=== PATIENT | male | born 1955 | race Caucasian/White ===

== ENCOUNTER 2024-07-19 05:06 | Inpatient (IN) | payer OTHER ==
[2024-07-19 05:51] LABS: Absolute Basophils 0.1 K/uL (0-0.5); Absolute Eosinophils 0.4 K/uL (0-0.5); Absolute Lymphocytes (CBC) 1.7 K/uL (0.7-4.9); Absolute Monocytes 0.9 K/uL (0.1-1.3); Absolute Neutrophil 3.4 K/uL (1.8-8.0); Basophils % 0.9 % (0-1.3); Hematocrit 45.2 % (39.6-49.0); Hemoglobin 15.3 g/dL (13.6-17.9); Lymphocytes % 26.2 % (15.3-44.8); MCH 29.5 pg (27.0-35.0); MCHC 33.8 g/dL (32.0-36.0); MCV 87.4 fL (80-100); MPV 8.7 fL (7.6-11.3); Monocytes % 14.5 % (3.3-12.3); Neutrophils % 52.4 % (41.7-73.7); Nucleated Red Blood Cells % 0.2 % (0-0); Platelets 235 thou/uL (152-406); RBC Red Blood Cell Count 5.17 M/uL (4.33-5.43); Red Cell Distribution Width 14.3 % (12.1-15.2)
[2024-07-19 05:52] LABS: PT Prothrombin Time 11.5 SECONDS (9.4-12.5); Protime INR 1.03
[2024-07-19 06:19] LABS: ALT/SGPT 40 U/L (16-61); Albumin 3.5 g/dL (3.4-5.0); Albumin/Globulin Ratio 0.9 (1.1-1.8); Alkaline Phosphatase 66 U/L (45-117); Anion Gap 8.9 mEq/L (5.0-15.0); BUN Blood Urea Nitrogen 17 mg/dL (7-18); Bicarbonate 28 mEq/L (21-32); Bilirubin Total 0.5 mg/dL (0.2-1.0); Globulin 3.8 g/dL (2.3-3.5); Glomerular Filtration Rate 69 ml/min (=/>90); Glucose Level 131 mg/dL (74-106); NT PRO-BNP 51 pg/mL (<125); Protein, Total 7.3 g/dL (6.4-8.2); Sodium Level 137 mEq/L (136-145); Troponin High Sensitivity 5.5 pg/mL (<58.9)
[2024-07-19] MEDS ORDERED: ONDANSETRON 4 MG/2 ML VIAL ONE (06:20)
[2024-07-19 06:22] LABS: AST/SGOT 30 U/L (15-37); Bilirubin Direct < 0.2 mg/dL (0-0.2); Bilirubin Indirect, Calculated 0.3 mg/dL (0.2-0.8); Magnesium 2.3 mg/dL (1.6-2.4); Potassium 3.9 mEq/L (3.5-5.1)
--- NOTE | 2024-07-19 07:06 | RAD REPORT ---
PROCEDURE: XR CHEST 1 VIEW TECHNIQUE: Chest radiograph single view. HISTORY: Chest pain COMPARISONS: None . FINDINGS: Heart: Normal contour. Mediastinum/Vessels: Normal contour. Lungs/Pleural space: No infiltrate, effusion, or pneumothorax. Bony thorax: No acute osseous abnormality. Life support devices: None. IMPRESSION: 1. No radiographic evidence of acute cardiopulmonary disease process. Electronically signed by: Gavi Rush MD 07/19/2024 06:38 AM [facility] Due to temporary technical issues with the PACS/Tag & See reporting system, reports are being florence d by the in-house radiologist without review as a courtesy to ensure prompt reporting the interpreting radiologist is fully responsible for the content of the report. Transcribed Date/Time: 07/19/2024 7:06 AM
--- NOTE | 2024-07-19 07:28 | ER ---
Nurse's Notes [facility] Name: Ritesh Aguilar Age: 69 yrs Sex: Male : 1955 Arrival Date: 07/19/2024 Time: 05:06 Bed 4 Private MD: Diagnosis: Unstable angina Presentation: 07/19 05:09 Chief complaint: Patient states: BURNING CP WOKE HIM UP OUT OF HIS SLEEP AT 4:30AM EMS jj7 states: CP AND NAUSEA. Coronavirus screen: At this time, the client does not indicate any symptoms associated with coronavirus-19. Ebola Screen: No symptoms or risks identified at this time. Initial Sepsis Screen: Does the patient meet any 2 criteria? No. Patient's initial sepsis screen is negative. Does the patient have a suspected source of infection? No. Patient's initial sepsis screen is negative. Risk Assessment: Do you want to hurt yourself or someone else? Patient reports no desire to harm self or others. Onset of symptoms was July 19, 2024. Care prior to arrival: Medication(s) given: ASA, x 4, IV initiated. 20 GA, in the left antecubital area. 05:09 Method Of Arrival: EMS: [facility] jj7 05:09 Acuity: LEIF 3 jj7 Triage Assessment: 05:09 General: Appears in no apparent distress. comfortable, Behavior is calm, cooperative, jj7 appropriate for age. Pain: Complains of pain in chest. Cardiovascular: Reports chest pain, BURNING CP. Historical: - Allergies: 05:13 No Known Allergies; jj7 - Home Meds: 05:47 Celexa Oral [Active]; Metoprolol Tartrate Oral [Active]; Nexium Oral [Active]; aa10 - PMHx: 05:13 SVT; Hypertensive disorder; Hypercholesterolemia; Gastroesophageal reflux disease; jj7 - PSHx: 05:13 ABLATION; jj7 - Immunization history:: Adult Immunizations up to date, Client reports receiving the 2nd dose of the Covid vaccine, Flu vaccine is up to date. - Infectious Disease History:: Denies. - Social history:: Smoking status: Patient denies any tobacco usage or history of. Patient/guardian denies using alcohol, street drugs, IV drugs. - Family history:: not pertinent. Screenin:15 [facility] ED Fall Risk Assessment (Adult) History of falling in the last 3 months, jj7 including since admission No falls in past 3 months (0 pts) Confusion or Disorientation No (0 pts) Intoxicated or Sedated No (0 pts) Impaired Gait No (0 pts) Mobility Assist Device Used No (0 pt) Altered Elimination No (0 pt) Score/Fall Risk Level 0 - 2 = Low Risk Oriented to surroundings, Maintained a safe environment, Educated pt \T\ family on fall prevention, incl call for assistance when getting out of bed, Assessed \T\ reinforced patient's understanding of fall precautions. Abuse screen: Denies threats or abuse. Nutritional screening: No deficits noted. Tuberculosis screening: No symptoms or risk factors identified. Assessment: 05:16 Pain: Pain does not radiate. Pain began 1 hour ago. rg5 06:53 Reassessment: Patient appears in no apparent distress at this time. No changes from aa10 previously documented assessment. Patient and/or family updated on plan of care and expected duration. Pain level reassessed. Patient is alert, oriented x 3, equal unlabored respirations, skin warm/dry/pink. 06:54 General: Appears in no apparent distress. comfortable, Behavior is calm, cooperative, aa10 appropriate for age, quiet, Reports feeling ill for 0-12 hours. Pain: Complains of pain in chest. Neuro: No deficits noted. Level of Consciousness is awake, alert, obeys commands, Oriented to person, place, time, situation, Appropriate for age Gait is steady, Speech is normal, Facial symmetry appears normal, Intact. Cardiovascular: No deficits noted. Capillary refill < 3 seconds. Respiratory: No deficits noted. Airway is patent. 07:40 Reassessment: Patient appears in no apparent distress at this time. Patient and/or ph family updated on plan of care and expected duration. Pain level reassessed. Patient is alert, oriented x 3, equal unlabored respirations, skin warm/dry/pink. Pt ambulatory to restroom w/ steady gait, denies pain at this time. Vital Signs: 05:09 BP 152 / 77; Pulse 67; Resp 20; Temp 98.4; Pulse Ox 99% ; Weight 106.59 kg; Height 5 jj7 ft. 10 in. ; 05:32 BP 152 / 77; Pulse 65 MON; Resp 20 S; Temp 98.4(O); Pulse Ox 97% ; aa10 06:53 BP 134 / 88; Pulse 66; Resp 20 S; Pulse Ox 96% on R/A; aa10 07:41 BP 139 / 73; Pulse 72; Resp 18; Pulse Ox 98% on R/A; ph 05:09 Body Mass Index 33.72 (106.59 kg, 177.8 cm) jj7 05:32 Sinus Rhythm aa10 Ventura Coma Score: 06:10 Eye Response: spontaneous(4). Motor Response: obeys commands(6). Verbal Response: sp4 oriented(5). Total: 15. ED Course: 05:06 Patient arrived in ED. jj6 05:07 Collin Narvaez MD is Attending Physician. sp4 05:08 Ricardo Espinosa, SAILAJA is Primary Nurse. rg5 05:09 EKG done, by ED staff, reviewed by Collin Narvaez MD. sa1 05:09 Arm band placed on right wrist. Patient placed in an exam room, on a stretcher, on jj7 shelter monitor, on pulse oximetry. 05:13 Triage completed. jj7 05:15 Maintain EMS IV. Dressing intact. Good blood return noted. Site clean \T\ dry. Gauge \T\ jj 7 site: 20G LEFT AC. Flushed with 10 mL NS. 05:15 Patient has correct armband on for positive identification. Bed in low position. Call jj7 light in reach. Provided Education on: USE OF CALL PATTEN. Client placed on continuous cardiac and pulse oximetry monitoring. NIBP monitoring applied. monitoring specialist on. Pulse ox on. 05:16 No provider procedures requiring assistance completed. Maintain EMS IV. Dressing rg5 intact. Site clean \T\ dry. Gauge \T\ site: 20 left AC. Flushed with 10 mL NS IV is intact, Flushed left antecubital saline lock with 5 ml normal saline. Patient maintains SpO2 saturation greater than 95% on room air. 05:29 Basic Metabolic Panel Sent. aa10 05:29 CBC with Diff Sent. aa10 05:29 LFT's Sent. aa10 05:29 Magnesium Sent. aa10 05:29 NT PRO-BNP Sent. aa10 05:29 PT-INR Sent. aa10 05:29 Troponin HS Sent. aa10 05:30 Inserted saline lock: 20 gauge in right antecubital area, using aseptic technique. aa10 05:51 Basic Metabolic Panel Sent. aa10 05:51 CBC with Diff Sent. aa10 05:51 LFT's Sent. aa10 05:51 Magnesium Sent. aa10 05:51 NT PRO-BNP Sent. aa10 05:51 PT-INR Sent. aa10 05:51 Troponin HS Sent. aa10 06:10 XRAY Chest (1 view) In Process Unspecified. EDMS 07:28 Nir Pantoja is Hospitalizing Provider. sp4 07:54 Hospitalizing Provider role handed off by Nir Pantoja sp4 07:54 Robert Ross MD is Hospitalizing Provider. sp4 08:14 Patient admitted, IV remains in place. ko1 12:56 Notify charge nurse of patient report being faxed. ty Administered Medications: 06:24 Drug: Ondansetron IVP 8 mg IVP once; over 2 minutes Route: IVP; Site: right antecubital;aa10 07:00 Follow up: Response: No adverse reaction; Marked relief of symptoms aa10 Medication: 05:16 VIS not applicable for this client. rg5 Outcome: 07:28 Decision to Hospitalize by Provider. sp4 08:14 Admitted to ER Hold. Please see [facility] for further documentation. ko1 08:14 Condition: stable 08:14 Instructed on the need for admit, 13:16 Admitted to Tele accompanied by tech, via wheelchair, room 402, with chart, ko1 13:17 Patient left the ED. ko1 Signatures: Dispatcher [employer] ELIZABETHMI Casi Rasmussen RN RN Tracey Cornelius jj6 Dinora Ledbetter RN RN ko1 Hussein Gil RN RN [id number] Collin Narvaez MD MD sp4 Lucian Kim ty Ricardo Espinosa RN RN rg5 Sultan Jian Alyssa Ramon RN RN aa10 Corrections: (The following items were deleted from the chart) 05:14 05:13 Allergies: Codeine; jj7 jj7
--- NOTE | 2024-07-19 07:28 | EDPHYS ---
Physician Documentation [facility] Name: Ritesh Aguilar Age: 69 yrs Sex: Male : 1955 Arrival Date: 07/19/2024 Time: 05:06 Bed 4 Private MD: ED Physician Collin Narvaez HPI: 07/19 05:07 This 69 yrs old Male presents to ER via Unassigned with complaints of Chest sp4 Pain. 06:10 This is 69-year-old male presents with EMS for acute onset of midsternal chest pressure sp4 associated with acute night sweat at 4 AM. Patient reported chest pressure associated with a burning sensation nausea breaking out in cold sweat shortness of breath on awakening at 4 AM. Patient has experienced dyspnea on exertion the last few weeks. Patient has visit with cardiology as scheduled tomorrow. For dyspnea on exertion. History of SVT with ablation. EMS administered 324 mg of aspirin p.o. Patient at home takes Lexapro, prazosin, lisinopril, metoprolol, omeprazole, rosuvastatin.. Historical: - Allergies: 05:13 No Known Allergies; jj7 - Home Meds: 05:47 Celexa Oral [Active]; Metoprolol Tartrate Oral [Active]; Nexium Oral [Active]; aa10 - PMHx: 05:13 SVT; Hypertensive disorder; Hypercholesterolemia; Gastroesophageal reflux disease; jj7 - PSHx: 05:13 ABLATION; jj7 - Immunization history:: Adult Immunizations up to date, Client reports receiving the 2nd dose of the Covid vaccine, Flu vaccine is up to date. - Infectious Disease History:: Denies. - Social history:: Smoking status: Patient denies any tobacco usage or history of. Patient/guardian denies using alcohol, street drugs, IV drugs. - Family history:: not pertinent. ROS: 06:10 Constitutional: Negative for fever, chills, and weight loss, positive for chest pain, sp4 shortness of breath, 06:10 All other systems are negative, Exam: 06:08 Constitutional: This is a well developed, well nourished patient who is awake, alert, sp4 and in no acute distress. Head/Face: Normocephalic, atraumatic. Eyes: Pupils equal round and reactive to light, extra-ocular motions intact. Lids and lashes normal. Conjunctiva and sclera are not injected. Cornea within normal limits. Periorbital areas with no swelling, redness, or edema. ENT: Nares patent. No nasal discharge, no septal abnormalities noted. Tympanic membranes are normal and external auditory canals are clear. Oropharynx with no redness, swelling, or masses, exudates, or evidence of obstruction, uvula midline. Mucous membranes moist. Neck: Trachea midline, no thyromegaly or masses palpated, and no cervical lymphadenopathy. Supple, full range of motion without nuchal rigidity, or vertebral point tenderness. Chest/axilla: Normal chest wall appearance and motion. Nontender with no deformity. No lesions are appreciated. Cardiovascular: Regular rate and rhythm with a normal S1 and S2. No gallops, murmurs, or rubs. Normal PMI, no JVD. No pulse deficits. Respiratory: Lungs have equal breath sounds bilaterally, clear to auscultation and percussion. No rales, rhonchi or wheezes noted. No increased work of breathing, no retractions or nasal flaring. Abdomen/GI: Soft, with normal bowel sounds. No distension or tympany. No guarding or rebound. No evidence of tenderness throughout. Back: No spinal tenderness. No costovertebral tenderness. Skin: Warm, dry with normal turgor. Normal color with no rashes, no lesions, and no evidence of cellulitis. MS/ Extremity: Pulses equal, no cyanosis. Neurovascular intact. Full, normal range of motion. Neuro: Awake and alert, GCS 15, oriented to person, place, time, and situation. Cranial nerves II-XII grossly intact. Motor strength 5/5 in all extremities. Sensory grossly intact. Psych: Awake, alert, with orientation to person, place and time. Behavior, mood, and affect are within normal limits 06:08 ECG was reviewed by the Attending Physician. EKG 0507, normal sinus rhythm rate 70 prolonged QT otherwise normal Vital Signs: 05:09 BP 152 / 77; Pulse 67; Resp 20; Temp 98.4; Pulse Ox 99% ; Weight 106.59 kg; Height 5 jj7 ft. 10 in. ; 05:32 BP 152 / 77; Pulse 65 MON; Resp 20 S; Temp 98.4(O); Pulse Ox 97% ; aa10 06:53 BP 134 / 88; Pulse 66; Resp 20 S; Pulse Ox 96% on R/A; aa10 07:41 BP 139 / 73; Pulse 72; Resp 18; Pulse Ox 98% on R/A; ph 05:09 Body Mass Index 33.72 (106.59 kg, 177.8 cm) jj7 05:32 Sinus Rhythm aa10 Berna Coma Score: 06:10 Eye Response: spontaneous(4). Motor Response: obeys commands(6). Verbal Response: sp4 oriented(5). Total: 15. MDM: 05:07 Medical Screening Exam initiated sp4 06:10 Differential diagnosis: acute myocardial infarction, acute pericarditis, anxiety, sp4 coronary artery disease chest wall pain, congestive heart failure esophagitis, gastritis. HEART Score: History: Highly Suspicious (2), ECG: Non specific repolarization disturbance / LBTB / PM (1), Age: > or = 65 years (2), Risk Factors: > or = 3 Risk factors for atherosclerotic disease (2), Troponin: < or = 1 x Normal Limit (0), Total Score = 7. The patient was not given aspirin in the Emergency Department. Administered by EMS. Data reviewed: vital signs, nurses notes, EMS record, old medical records, lab test result(s), EKG, radiologic studies. Consideration of Admission/Observation Patient was admitted/placed on observation. Escalation of care including admission/observation considered. 07:25 ED course: PROCEDURE: XR CHEST 1 VIEW TECHNIQUE: Chest radiograph single view. HISTORY: sp4 Chest pain COMPARISONS: None . FINDINGS: Heart: Normal contour. Mediastinum/Vessels: Normal contour. Lungs/Pleural space: No infiltrate, effusion, or pneumothorax. Bony thorax: No acute osseous abnormality. Life support devices: None. IMPRESSION: 1. No radiographic evidence of acute cardiopulmonary disease process.. 07/19 05:07 Order name: Basic Metabolic Panel; Complete Time: 06:48 sp4 07/19 05:07 Order name: CBC with Diff; Complete Time: 06:00 sp4 07/19 05:07 Order name: LFT's; Complete Time: 06:48 sp4 07/19 05:07 Order name: Magnesium; Complete Time: 06:48 sp4 07/19 05:07 Order name: NT PRO-BNP; Complete Time: 06:48 sp4 07/19 05:07 Order name: PT-INR; Complete Time: 06:00 sp4 07/19 05:07 Order name: Troponin HS; Complete Time: 06:48 sp4 07/19 10:14 Order name: Troponin High Sensitivity [facility] 07/19 05:07 Order name: XRAY Chest (1 view); Complete Time: 07:26 sp4 07/19 07:59 Order name: CONS Physician Consult [facility] 07/19 05:07 Order name: Cardiac monitoring; Complete Time: 05: sp4 07/19 05:07 Order name: EKG - Nurse/Tech; Complete Time: 05:09 sp4 07/19 05:07 Order name: IV Saline Lock; Complete Time: 05:27 sp4 07/19 05:07 Order name: Labs collected and sent; Complete Time: : sp4 07/19 05:07 Order name: O2 Per Protocol; Complete Time: 05: sp4 07/19 05:07 Order name: O2 Sat Monitoring; Complete Time: : sp4 EC:07 Rate is 70 beats/min. Rhythm is regular, Normal Sinus Rhythm. QRS Emerson is Normal. PA sp4 interval is normal. QRS interval is normal. QT interval is prolonged. No Q waves. T waves are Normal. No ST changes noted. Clinical impression: No evidence of ischemia. Interpreted by me. Reviewed by me. Administered Medications: 06:24 Drug: Ondansetron IVP 8 mg IVP once; over 2 minutes Route: IVP; Site: right antecubital;aa10 07:00 Follow up: Response: No adverse reaction; Marked relief of symptoms aa10 Disposition Summary: 07/19/24 07:28 Hospitalization Ordered Notes: Hospitalization Status: Inpatient Admission sp4 Location: Telemetry/[facility] (Inpatient) sp4 Condition: Stable sp4 Problem: new sp4 Symptoms: have improved sp4 Bed/Room Type: Standard sp4 Provider: Robert Ross(07/19/24 07:54) sp4 Room Assignment: [facility](07/19/24 12:45) ty Diagnosis - Unstable angina sp4 Forms: - Medication Reconciliation Form sp4 - SBAR form sp4 - Leadership Thank You Letter sp4 Signatures: Dispatcher [employer] Hussein Jewell RN RN jj7 Collin Narvaez MD MD sp4 Lucian Kim ty Alyssa Arreola, RN RN aa10 Corrections: (The following items were deleted from the chart) 05:08 05:08 BASIC METABOLIC PANEL+C.LAB.BRZ ordered. EDMS EDMS 05:08 05:08 CBC+H.LAB.BRZ ordered. EDMS EDMS 05:08 05:08 HEPATIC FUNCTION+C.LAB.BRZ ordered. EDMS EDMS 05:08 05:08 MAGNESIUM+C.LAB.BRZ ordered. EDMS EDMS 05:08 05:08 PROBNP+C.LAB.BRZ ordered. EDMS EDMS 05:08 05:08 PROTIME (+INR)+COAG.LAB.BRZ ordered. EDMS EDMS 05:08 05:08 Troponin High Sensitivity+C.LAB.BRZ ordered. EDMS EDMS 05:08 05:08 Chest Single View+RAD.RAD.BRZ ordered. EDMS EDMS 05:14 05:13 Allergies: Codeine; jj7 jj7 07:54 07:28 Nir Pantoja sp4 sp4 12:45 07:28 sp4 ty
[2024-07-19] MEDS ORDERED: ACETAMINOPHEN 325 MG TABLET PO PRN (08:49)
[2024-07-19] MEDS ORDERED: ONDANSETRON 4 MG/2 ML VIAL IV PRN (08:49)
[2024-07-19] MEDS ORDERED: ALBUTEROL 2.5 MG/3 ML NEB SOL NEB PRN (08:49)
[2024-07-19] MEDS: ENOXAPARIN 100 MG/ML SYR SQ SCH (09:00)
[2024-07-19] MEDS: METOPROLOL XL 25 MG TAB PO SCH (09:00)
--- NOTE | 2024-07-19 11:58 | HP ---
Date of Admission: 07/19/2024 Chief Complaint: Chest pain. History Of Present Illness: This is a 69-year-old male patient, who has not felt good in last 2 grover hs and describes as just overall feeling tired. He has not had any chest pain complaint or any other cardiac complaint up until this morning. The patient says that he woke up around 4 o'clock this mor richard from his sleep with chest pain and describes his chest pain as burning type of pain in the cente r of his chest, associated with some nausea, shortness of breath, and diaphoresis. His pain did not radiate anywhere and it lasted about 15 minutes or so and after that it subsided spontaneously, but a fter a while, his symptoms came back and that is the time he called ambulance and was brought into em ergency room. He was given aspirin by EMS and after he came to emergency room, his chest pain compla int has improved without any further intervention. After he was evaluated in emergency room, I was c ontacted requesting admission to the hospital and I saw him in the emergency room this morning. Allergies: TO CODEINE. Medications: Takes rosuvastatin, metoprolol, and lisinopril. Review of Systems: Cardiovascular: As mentioned above. All other systems reviewed and negative. Past Medical History: Significant for gastroesophageal reflux disease, history of paroxysmal suprave ntricular tachycardia, anxiety, Tavares's esophagus, history of ulcerative colitis, hypertension, and hyperlipidemia. Past Surgical History: Significant for tonsillectomy and ablation procedure for supraventricular tac hycardia. Family History: Brother and sister alive and well. Son has Crohn's disease. Mother had diabetes. Father had heart disease. Social History: He is , lives at home with his . Negative for smoking and alcohol use. Physical Examination: Vital Signs: Upon presentation to emergency room, blood pressure 152/77, respiratory rate 20, pulse 67, temperature 98.4, oxygen saturation 99%. Weight 106.59 kg, height 5 feet 10 inches. General: Awake, alert, oriented, not in distress. HEENT: Head atraumatic, normocephalic. Conjunctivae nonerythematous. Sclerae white. Mouth, no thr ush or edema noted. Ears/Nose, no mass, lesion, discharge noted. Neck: Supple. No JVD, lymph nodes, bruit, thyromegaly noted. Lungs: Bilateral good equal air entry. Clear to auscultation. No rhonchi. No rales. Heart: Normal heart sounds, no murmur or gallop. Abdomen: Soft, bowel sounds normal. No guarding, rigidity, tenderness, mass, hepatosplenomegaly, dis tention, or bruit noted. Extremities: No leg edema. No calf tenderness. Skin: No rash, ulcer, cellulitis. Lymphatics: No lymph node enlargement in neck, supraclavicular, infraclavicular region. Neuro: No focal neurological deficit. Chest: Unremarkable. External Genitalia: Deferred. Rectal: Deferred. Laboratory Data: His EKG was normal sinus rhythm, incomplete right bundle-branch block. Chest x-ray , no acute cardiopulmonary changes. WBC 6.5, hemoglobin 15.3, platelets 235. Sodium 137, potassium 3.9, chloride 104, bicarb 28, BUN 17, creatinine 1.16, glucose 131. Liver function tests unremarkabl e. Troponin 5.5. Impression: 1.Unstable angina. 2.Hypertension. 3.Hyperlipidemia. 4.Gastroesophageal reflux disease. 5.Anxiety. 6.History of supraventricular tachycardia. Plan: We will admit the patient to hospital for further evaluation and management of this problem. The patient is appropriate for inpatient and is expected to spend 2 midnights in hospital. He receiv ed aspirin by EMS and we will start aspirin 81 mg daily as of tomorrow. We will start metoprolol 25 mg daily as of today and Lovenox 100 mg subcutaneous injection every 12 hours starting this morning. Consult electric motor and generator assembler and we will keep the patient n.p.o. after midnight for possible cardiac cath pr ocedure tomorrow. I have communicated with him and explained him details regarding different possibi lities that reminded a finding on basis of cardiac cath, 1 is that it is a false alarm in sense that his chest pain is not necessarily cardiac in origin and that will be the best place that we can provi de to somebody like him, but we definitely need to have further investigation to see if he has any si gnificant underlying coronary artery disease requiring further intervention and he understands and ag radha with the plan of treatment that is recommended to him. For hypertension, we will continue metop rolol per order. Monitor blood pressure and adjust medication as it becomes necessary. For hyperlip idemia, we will go ahead and give him Rosuvastatin 20 mg daily at bedtime. Get fasting lipid profile tomorrow morning. For his gastroesophageal reflux disease, no need for further intervention. Detai ls and plan of treatment discussed with the patient and we will follow up with our electric motor and generator assembler, Dr. Carreon regarding further plan of treatment. Total time spent today 80 minutes including review of last hospital visit record from 01/10/2014, rev iew of last office visit record, review of emergency room visit record, communication with emergency room physician. KATIE/MODL Voice ID: [id number]
[2024-07-19 16:44] LABS: Specific Gravity 1.011 (1.005-1.030); Urine Bilirubin NEGATIVE (Negative); Urine Blood Negative (Negative); Urine Clarity Clear (Clear); Urine Color Light-Yellow (Yellow); Urine Glucose NEGATIVE (Negative); Urine Ketones NEGATIVE (Negative); Urine Microscopic Reflex YN NO UMIC; Urine Nitrite NEGATIVE (Negative); Urine Protein NEGATIVE (Negative); Urine Urobilinogen Normal (Normal)
[2024-07-19] MEDS: ROSUVASTATIN 10 MG TAB PO SCH (20:19)
[2024-07-19] MEDS: ZOLPIDEM TARTRATE 5 MG TABLET PO PRN (22:03)
[2024-07-20 08:09] LABS: Anion Gap 8.8 mEq/L (5.0-15.0); Potassium 3.8 mEq/L (3.5-5.1)
[2024-07-20] MEDS: D5 0.9 NS 1,000 ML IV SCH (08:17)
[2024-07-20] MEDS: ASPIRIN EC 81 MG TAB PO SCH (08:17)
[2024-07-20] MEDS ORDERED: NITROGLYCERIN/D5W 50 MG/250 ML BTL IV ONE (09:52)
[2024-07-20] MEDS ORDERED: HEPA 1000U/500MLS 2,000 UNIT/1,000 ML BAG IV ONE (09:52)
[2024-07-20] MEDS ORDERED: LIDOCAINE 1% 20 ML MDV ONE (09:53)
[2024-07-20] MEDS ORDERED: HEPARIN 10,000 UNIT/10 ML VIAL IV ONE (09:53)
[2024-07-20] MEDS ORDERED: MIDAZOLAM HCL 2 MG/2 ML INJ ONE (09:53)
[2024-07-20] MEDS ORDERED: ATROPINE SULF 1 MG/10 ML SYR IV ONE (09:53)
[2024-07-20] MEDS ORDERED: ASPIRIN 325 MG TAB ONE (09:54)
[2024-07-20] MEDS ORDERED: FENTANYL CITR 100 MCG/2 ML ONE (09:54)
[2024-07-20] MEDS ORDERED: HEPARIN 5000 UNIT/ML 1 ML VIAL ONE (09:54)
[2024-07-20] MEDS ORDERED: NA CHLORIDE 0.9% 500 ML ONE (09:54)
[2024-07-20] MEDS ORDERED: TICAGRELOR 90 MG TABLET PO ONE ×3 (09:54→14:00)
[2024-07-20] MEDS ORDERED: CLOPIDOGREL 75 MG TABLET ONE (09:54)
[2024-07-20 10:30] VITALS: BMI 33.5
--- NOTE | 2024-07-20 10:36 | P.CNS ---
Date of Consult: 07/20/24 Chief Complaint: chest pain History of Present Illness: Patient with PMH of HTN, HLD presented with worsening chest pain that started yesterday, pressure in nature associated with sweating and diaphoresis, denies any other symptoms Allergies codeine [Codeine] Allergy (Severe, Verified 08/09/13 18:03) Nausea/Vomiting Home medications list reviewed: Yes Home Medications: Escitalopram Oxalate [Lexapro] 10 mg PO DAILY 07/19/24 Lisinopril [Zestril] 10 mg PO DAILY 07/19/24 Metoprolol Succinate [Toprol Xl] 25 mg PO DAILY 07/19/24 Omeprazole [Prilosec] 40 mg PO DAILY 07/19/24 Prazosin HCl 1 mg PO DAILY 07/19/24 Rosuvastatin [Crestor] 5 mg PO SEECOM 07/19/24 clonazePAM [Clonazepam] 0.25 mg PO PRN PRN 07/19/24 - Past Medical/Surgical History Diabetic: No -: tachycardia -: SVT -: GERD -: herniated disc in nec -: tonsillectomy -: cardiac ablation r/t SVT - Social History Smoking Status: Never smoker Alcohol use: Yes CD- Drugs: No Caffeine use: Yes Place of Residence: Home Review of Systems 10-point ROS is otherwise unremarkable Physical Examination Temp Pulse Resp BP Pulse Ox 98.1 F 69 20 124/76 94 07/20/24 08:00 07/20/24 08:00 07/20/24 08:00 07/20/24 08:00 07/20/24 08:00 General: Alert, In no apparent distress HEENT: Atraumatic, PERRLA, Mucous membr. moist/pink, EOMI, Sclerae nonicteric Neck: Supple, 2+ carotid pulse no bruit, No LAD, Without JVD or thyroid abnormality Respiratory: Clear to auscultation bilaterally, Normal air movement Cardiovascular: Regular rate/rhythm, Normal S1 S2 Gastrointestinal: Normal bowel sounds, No tenderness Musculoskeletal: No tenderness Integumentary: No rashes Neurological: Normal gait, Normal speech, Normal tone, Normal affect Lymphatics: No axilla or inguinal lymphadenopathy - Problems (1) Chest pain Current Visit: No Status: Active Plan: concern for angina. NPO for coronary angiogram continue ASA and statins (2) Palpitations Current Visit: No Status: Active Plan: continue toprol XL (3) HTN (hypertension) Current Visit: Yes Status: Acute Plan: BP is better controlled, continue Toprol
[2024-07-20] MEDS ORDERED: ONDANSETRON 4 MG/2 ML VIAL ONE (11:54)
[2024-07-20] MEDS: TICAGRELOR 90 MG TABLET PO ONE ×2 (13:30→20:00)
[2024-07-20] MEDS: TICAGRELOR 90 MG TABLET PO SCH (14:00)
--- NOTE | 2024-07-20 20:25 | OP ---
Date of Procedure: 07/20/2024 Surgeon: Duc Carreon Procedures Performed: 1.Left heart catheterization. 2.Selective coronary angiogram. 3.PCI of the OM2 with Synergy 3.0 x 12 mm drug-eluting stent. 4.PTCA of the OM1 with NC balloon. Indication For Procedure: Unstable angina. Complications: None. Estimated Blood Loss: Less than 50 cc. Access: Right radial, closed by TR band. Sedation Time: 30 minutes with 1 of Versed and 25 of fentanyl. Description Of Procedure: After risks, and benefits, and alternatives were explained to the patient, patient agreed to proceed with procedure and signed informed consent. The patient was brought back into the laborer tin can, prepped and draped in sterile fashion. Time-out was performed. Sedation was admi nistered. Next, the right radial access was obtained using ultrasound-guided micropuncture technique . A [place] 4.0 catheter was advanced over a J-wire to the LV cavity. LVEDP was obtained. Pullback d id not show any gradient. Same catheter was used for selective angiogram of the left and right coron shanna systems and that catheter was later exchanged for an EBU 3.0 mm guide. Heparin was administered. ACT was therapeutic. Runthrough wire was passed across the OM2, pre-dilated the lesion with NC 2.5 mm balloon. Next, Synergy 3.0 x 12 mm drug-eluting stent was placed across the lesion. This was po stdilated with a stent balloon. After that, the Runthrough wire was passed into the OM1. It is a sm all artery, so PTCA was done with an NC 1.5 mm balloon. Final angiogram shows CINTHYA-3 flow. Wire was removed. Catheter was removed over a J-wire. Sheath was removed. TR band was applied. Hemostasis was achieved and patient was moved back to Recovery in stable condition. Findings: 1.Left main normal. 2.LAD; diffuse atherosclerosis with mid to distal 50% diffuse disease. 3.Left circ; mild luminal irregularities. 4.OM1; small with a proximal 90% disease. PTCA was done. 5.OM2; large with mid 70% to 80% disease, status post PCI as above. 6.Left PDA; mild luminal irregularities. 7.RCA; small diffuse disease, nondominant. Assessment And Plan: 1.Significant OM2 disease, status post PCI with Synergy 3.0 x 12 mm drug-eluting stent. 2.Significant OM1 disease, very small artery. PTCA done with the NC 1.5 mm balloon. 3.Moderate diffuse mid to distal LAD disease. 4.Normal filling pressures. LVEDP was 11 mmHg. Plan will be: 1.Aspirin 81 mg daily for life. 2.Brilinta 180 x1 was given in the laborer tin can. Continue Brilinta 90 mg p.o. b.i.d. for 12 months. 3.Continue aggressive medical treatment for CAD. TANIYA/LUZMARIA Voice ID: [id number] Report ID: [id number]
[2024-07-20] MEDS ORDERED: TICAGRELOR 90 MG TABLET PO SCH (21:00)
[2024-07-21 04:03] VITALS: O2SAT 97
[2024-07-21] MEDS: CLOPIDOGREL 75 MG TABLET PO ONE (08:12)
--- NOTE | 2024-07-21 10:29 | DS ---
Date of Discharge: 07/21/2024 Disposition: Discharged to go home. Physical Examination: HEENT: Unremarkable. Lungs: Clear to auscultation. Heart: Sounds normal. Abdomen: Soft. Bowel sounds normal. No guarding, rigidity, tenderness, distention. Extremities: No leg edema. Laboratory Data: Yesterday, sodium 137, potassium 3.8, chloride 106, bicarb 26, BUN 20, creatinine 1 .01, glucose 111, triglyceride 227, total cholesterol 153, LDL 77, HDL 31. Upon admission, sodium 13 7, potassium 3.9, chloride 104, bicarb 28, BUN 17, creatinine 1.16, glucose 131. Liver function test s unremarkable. Troponin upon admission was 5.5 and subsequent troponin levels were 5.7, 4.9, and 6. 7. Upon admission, white count 6.5, hemoglobin 15.3, platelets 235. Hospital Course: This is a 69-year-old pleasant male patient, who came into emergency room with comp laints of chest pain. Please see dictated H and P for more information. After the patient was evalu ated in the emergency room, he was admitted to the hospital with unstable angina and the patient was started on aspirin and Lovenox. He was also started on metoprolol and rosuvastatin. The patient rem ained asymptomatic during this hospitalization. KS was ruled out and Cardiology consultation was req uested from Dr. Carreon. We did cardiac cath on him yesterday and did angioplasty and stent placement . After the procedure, the patient received Brilinta, had nausea, vomiting, and subsequently, cardio logist contacted me and informed me to keep the patient in the hospital overnight for close observati on. This morning when I saw him, he was asymptomatic, stable and no new complaints or problems repor amna. This morning, the patient received loading dose of clopidogrel as we are planning to discharge him to go home on clopidogrel and not Brilinta as per my discussion with analytics developer yesterday. I h ave gone over discharge instructions with the patient and I have also given him a copy of discharge i nstructions. I have instructed him since this cardiac cath was done using right wrist approach, I catal[place] ve instructed him not to pull or push or carry anything heavy using his right hand for [address] renuous activity for 1 week and not to carry anything more than 8-ounce glass of water using right [place] for next 1 week. I have instructed him to call office to schedule appointment to see me next week on which is July 27, 2024. Final Diagnoses: 1.Unstable angina. 2.Coronary artery disease. 3.Hypertension. 4.Hyperlipidemia. 5.Gastroesophageal reflux disease. 6.Anxiety. 7.History of supraventricular tachycardia. Discharge Medications And Instructions: Continue all prior home medications except following changes : 1.Stop rosuvastatin 5 mg. 2.Start rosuvastatin 20 mg take 1 tablet by mouth daily at bedtime. 3.Start aspirin 81 mg take 1 tablet by mouth daily with food started tomorrow. 4.Start clopidogrel 75 mg take 1 tablet by mouth daily with food started tomorrow. 5.Follow up at my office next week and follow up with analytics developer in 2 weeks. Total time spent today 40 minutes. KATIE/MODL Voice ID: [id number] Report ID: [id number]
--- NOTE | 2024-07-21 10:47 | PN ---
Date of Progress Note: 07/20/2024 Subjective: The patient was seen this morning for followup. No new complaints or problems reported by the patient. Denies any complaints overnight. No chest pain, shortness of breath. Objective: Vital Signs: Reviewed. HEENT: Unremarkable. Lungs: Clear to auscultation. Heart: Sounds normal. Abdomen: Soft. Bowel sounds normal. No guarding, rigidity, tenderness, distention. Extremities: No leg edema. Laboratory Data: Today, sodium 137, potassium 3.8, chloride 106, bicarb 26, BUN 20, creatinine 1.01, glucose 111. Total cholesterol 153, triglycerides 227, LDL 77, HDL 31. Impression: 1.Unstable angina. 2.Coronary artery disease. 3.Hypertension. 4.Hyperlipidemia. Plan: After I saw the patient today, he was kept n.p.o., IV fluid, D5 normal saline was started and Dr. Carreon from Cardiology did cardiac cath on him and after the procedure was done, she contacted an d informed me that the patient received Brilinta after the stent placement with angioplasty and he di d have nausea and vomiting, so she would like to keep the patient in the hospital overnight for obser vation and the patient will get Brilinta per his order and starting tomorrow we will change it to kamari pidogrel and I will see him tomorrow for followup and Dr. Carreon has given his okay for discharge tomorrow. I will see him tomor row for followup. KATIE/MODL Voice ID: [id number] Report ID: [id number]
[2024-07-21 12:18] VITALS: BP 135/65; TEMP 98
[2024-07-22] MEDS ORDERED: CLOPIDOGREL 75 MG TABLET PO SCH (09:00)
--- NOTE | 2024-07-24 11:23 | EKG ---
Test Date: 2024-07-19 Test Time: 05:07:15 Air Marshal: MEASUREMENT RESULTS: Intervals: Rate: 70 KS: 162 QRSD: 118 QT: 450 QTc: 486 Forbes: P: 44 KS: 162 QRS: 29 T: 46 INTERPRETIVE STATEMENTS: Normal sinus rhythm Incomplete right bundle branch block Prolonged QT Abnormal ECG Compared to ECG 01/11/2014 14:21:38 Incomplete right bundle-branch block now present Prolonged QT interval now present Sinus arrhythmia no longer present Electronically Signed On 07-24-24 11:16:14 ASSOCIATE LOAN OFFICER by Duc Carreon
== END 2024-07-21 13:45 | disposition home or self-care (01) | DRG 322 ==
LOC: ER 05:06 → ERHOLD 07:55 → OBSVTOIN 09:26 → 4TH 13:16
PROVIDERS: ADMIT Internal Medicine; ATTEND Internal Medicine
PROC: 02703DZ Dilation of Coronary Artery, One Artery with Intraluminal Device, Percutaneous Approach (ICD-10-PCS; principal; 2024-07-20)
PROC: 4A023N7 Measurement of Cardiac Sampling and Pressure, Left Heart, Percutaneous Approach (ICD-10-PCS; 2024-07-20)
PROC: B2011ZZ Plain Radiography of Multiple Coronary Arteries using Low Osmolar Contrast (ICD-10-PCS; 2024-07-20)
PROC: B2051ZZ Plain Radiography of Left Heart using Low Osmolar Contrast (ICD-10-PCS; 2024-07-20)
DX: I25.110 Atherosclerotic heart disease of native coronary artery with unstable angina pectoris (principal); I47.10 Supraventricular tachycardia, unspecified; K21.9 Gastro-esophageal reflux disease without esophagitis; F41.9 Anxiety disorder, unspecified; K22.70 Barrett's esophagus without dysplasia; I10 Essential (primary) hypertension; E78.5 Hyperlipidemia, unspecified; E78.00 Pure hypercholesterolemia, unspecified; R00.2 Palpitations
CPT/HCPCS: 36415; 71045; 76937; 80048; 80061; 80076; 81003; 83735; 83880; 84484; 85025; 85347; 85610; 93005; 96374; 99152; 99153; 99285; C1725; C1893; C9600; G0378; J0461; J1644; J1650; J2003; J2250; J2405; J3010; J7040; J7042; Q9966

== ENCOUNTER 2025-03-02 09:18 | Day surgery (SDC) | payer OTHER ==
[2025-02-28 09:26] LABS: Absolute Lymphocytes (CBC) 1.2 K/uL (0.7-4.9); Hematocrit 44.0 % (39.6-49.0); Hemoglobin 14.5 g/dL (13.6-17.9); MCH 29.0 pg (27.0-35.0); MCHC 33.0 g/dL (32.0-36.0); MCV 87.8 fL (80-100); MPV 9.0 fL (7.6-11.3); Nucleated RBC Absolute Count 0.0 (0-0); Nucleated Red Blood Cells % 0.1 % (0-0); RBC Red Blood Cell Count 5.02 M/uL (4.33-5.43); White Blood Count 6.00 thou/uL (4.3-10.9)
[2025-02-28 09:35] LABS: PT Prothrombin Time 11.9 SECONDS (10-13.0); PTT, Activated Partial Thromb 24.8 SECONDS (27.2-37.4); Protime INR 1.05
[2025-02-28 09:39] LABS: Anion Gap 7.2 mEq/L (5.0-15.0); BUN Blood Urea Nitrogen 16.0 mg/dL (7-18); Glucose Level 105.0 mg/dL (74-106); Potassium 4.2 mEq/L (3.5-5.1)
[2025-03-02] MEDS: Ringers Lactate 1,000 ML IV ONE (10:00)
[2025-03-02] MEDS: SCOPOLAMINE HYDROBROMIDE PATCH TD ONE (10:32)
[2025-03-02] MEDS ORDERED: FENTANYL CITR 100 MCG/2 ML ONE (10:33)
[2025-03-02] MEDS ORDERED: LIDOCAINE 2% MPF 5 ML VIAL ONE (10:33)
[2025-03-02] MEDS ORDERED: GLYCOPYRROLATE 0.2 MG/ML SYR ONE ×2 (10:33→10:35)
[2025-03-02] MEDS ORDERED: PROMETHAZINE INJ 25 MG/ML AMP ONE (10:34)
[2025-03-02] MEDS ORDERED: FAMOTIDINE 20 MG/2 ML VIAL IV ONE (10:39)
[2025-03-02] MEDS: CEFAZOLIN SODIUM 1 GM/VIAL ONE (11:10)
[2025-03-02] MEDS ORDERED: ONDANSETRON 4 MG/2 ML VIAL ONE (11:43)
[2025-03-02 13:03] VITALS: BP 128/86; TEMP 98.4; O2SAT 96
--- NOTE | 2025-03-02 13:08 | OP ---
Date of Procedure: 03/02/2025 Surgeon: Omega Joel MD Preoperative Diagnosis: Left knee pain with mechanical symptoms, probable meniscal tear or tears. Postoperative Diagnoses: 1. Left knee grade 3 chondromalacia, lateral compartment. 2. Large lateral meniscal tear with apparent significant meniscal loss. Procedure Performed: Left knee arthroscopy with debridement of lateral meniscal tear. Estimated Blood Loss: Less than 10 cc. Complications: There were no complications. Specimens: No pathology specimens sent. Indications For Operation: Mr. Aguilar is a 69-year-old male who unfortunately was suffering from left knee pain. We attempted to treat this conservatively. However, he continued to have pain and mechan ical symptoms and risks, benefits, and alternatives to arthroscopic management have been discussed wi th the patient. He states he understands things as presented and wishes to proceed. Description Of Procedure: The patient was taken to the operating room, placed in supine position, ge neral anesthesia was easily obtained by Anesthesia staff. Following this, a well-padded tourniquet w as placed on superior left thigh. Left lower extremity was then prepped and draped in usual sterile fashion for the procedure. Following this, a standard superior medial arthroscopy portal was then pl aced with liberation of approximately 20 cc of rather normal-appearing synovial fluid. This was foll owed by placement of inferolateral arthroscopy portal and the knee was then sequentially examined inc luding suprapatellar pouch, medial and lateral gutters, medial and lateral compartments as well as th e notch and patellofemoral joint. Pertinent findings included grade 3 chondromalacia of the lateral compartment also with what appeared to be a posterior loss of meniscal tissue with visible popliteus tendon behind and a few fibers which may barely bridge. However, this appeared to be more consistent with scarring than actual meniscal tissue. Following this, an inferomedial arthroscopy portal was t hen placed using a needle for localization. The medial meniscus was probed in total and was found to have no tear. Attention was then turned to the lateral meniscus. There was found to be a radial po rtions of the 2 ends of the meniscal tear with no real connection between these 2 incisions made to d ebride the radial portions. This was done using hand instruments as well as the shaver until the rem ainder of the meniscus is firm, hooked stable and none of the meniscal fragments can be brought into the articulation between the femur and tibia. The knee was again examined in all the above areas wit h no further pathology seen, which was amenable to arthroscopic intervention. After this, the inferi or arthroscopy portals were then stapled shut. The superior medial arthroscopy portal was then used for placement of Marcaine and this was then stapled. The patient was placed in a well-padded sterile dressing, awakened, and taken to recovery room in good condition. No complications. /LUZMARIA Voice ID: [id number] Report ID: [id number]
== END 2025-03-02 13:46 | disposition home or self-care (01) ==
LOC: OR 09:18
PROVIDERS: ATTEND Orthopaedic Surgery
PROC: 0SBD4ZZ Excision of Left Knee Joint, Percutaneous Endoscopic Approach (ICD-10-PCS; principal; 2025-03-02 10:30)
DX: S83.282A Other tear of lateral meniscus, current injury, left knee, initial encounter (principal); M17.12 Unilateral primary osteoarthritis, left knee; M25.562 Pain in left knee; M22.42 Chondromalacia patellae, left knee
CPT/HCPCS: 85025; 80048; 36415; 85610; 85730; 29880; J2550; J2704; J1100; J2003; J3010; J2405; J7120; J0690